=== PATIENT | male | born 1925 | race Caucasian/White ===

== ENCOUNTER 2017-02-13 21:57 | Inpatient (IN) | payer MEDICARE, OTHER ==
[~2017-02-13] VITALS: Ht 177.8 cm; Wt 70.7 kg
[~2017-02-13 21:57] MED LIST: AMLO5TAB2 PO; ATEN25TA PO; ATOR40TA69 PO; GLIP10TA10 PO; GLPZ5T PO; HYDR-4003 PO; ISOS30TA4 PO; LISI-567 PO; METF500T4 PO; NITR0.4T6 SL; OMEP10CA4 PO; OXYC1TAB24 PO; TRIA1TAB3 PO
[2017-02-13 23:25] VITALS: BP 159/69; PULSE 59; RESP 18; O2SAT 97
[2017-02-13] MEDS ORDERED: GLIP10TA10 PO (23:51)
[2017-02-13] MEDS ORDERED: OMEP20TA86 PO (23:54)
[2017-02-13] MEDS ORDERED: METH750T3 PO (23:57)
[2017-02-13] MEDS ORDERED: DOCU-41 PO (23:58)
[2017-02-14] MEDS ORDERED: ATEN25TA PO
[2017-02-14] MEDS ORDERED: ASPI325T32 PO (00:01)
[2017-02-14] MEDS ORDERED: Ondansetron 2 mg/mL 2 mL Inj IVPUSH PRN (00:25)
[2017-02-14] MEDS ORDERED: Alum-Mag Hydrox-Simeth 30 mL Suspension PO PRN (00:25)
[2017-02-14] MEDS ORDERED: Glucose 40% Oral Gel 15 Gm Tube PO PRN (00:25)
[2017-02-14] MEDS ORDERED: Polyethylene Glycol (PEG) 17 Gm Powder PO PRN (00:25)
--- NOTE | 2017-02-14 00:25 | NUR ---
Admit Pt arrived to [facility] at 0015 EMS direct Admit from [facility]. Pt stating came to [place] ER due to low blood sugar. Pt is alert and oriented X3, up ambulating independently in room, steady gait observed, denies chest pain. Placed pt on tele. Pt has medial back incision with stitches from recent spinal surgery 1 week ago, redness noted to site. Med rec completed from [facility] med list, pt stating brought meds to [place] to complete their med list. paged for pt arrival. Call light within reach, frequent rounding.
[2017-02-14 00:51] LABS: BASOPHILS % (AUTO) 0.5 % (0-3); EOSINOPHILS % (AUTO) 10.6 % (0-5); MONOCYTES % (AUTO) 15.3 % (4-12); Mean Corpuscular Hemoglobin 30.1 pg (27.0-35.0); Mean Corpuscular Volume 92.5 fL (81-100); NEUTROPHILS % (AUTO) 56.7 % (40-74); Platelet Count 351 bil/L (150-400)
[2017-02-14 00:54] VITALS: PULSE 60
[2017-02-14 01:31] LABS: APPEARANCE,URINE CLEAR (CLEAR,HAZY); COLOR,URINE YELLOW (YELLOW); OCCULT BLOOD,URINE NEGATIVE (NEGATIVE); PH,URINE 6.5 (5.0-8.0); UROBILINOGEN,URINE NORMAL (NORMAL)
[2017-02-14 01:45] LABS: Magnesium 1.7 mg/dL (1.6-2.6); TROPONIN T 0.01 ug/L (0.0-0.011)
--- NOTE | 2017-02-14 01:57 | PCM.HPMED ---
Subjective Date of Service Feb 14, 2017 Primary Provider: Admitting Physician: Cedric Abdalla MD Primary Care Physician: Misael Meade MD Attending Physician: Cedric Abdalla MD Chief Complaint: lightheaded, weak History of Present Illness: 89yo gentleman with reported hx of dm2, cad, hld transfer from outside facility initially weak, sweaty, lightheaded. found to be hypoglycemic. improved after treatment. found to have elevated troponin. 0.126 per ed doctor denies ever having chest pain or dyspnea recently had lower back surgery 1 weeks ago. feels much better now. Review of Systems: REVIEW OF SYSTEMS: Positive Review of Symptoms mentioned and elaborated on in HPI. Head: Denies H/A, trauma, loss of consciousness. Eyes: Denies visual loss, diplopia. Ears: Denies: deafness, tinnitis, discharge, pain Nose: Denies discharge, obstruction, epistaxis Mouth: Denies sores, gingival bleeding, jaw pain Neck: Denies stiffness, issues swallowing. Respiratory: Denies dyspnea, cough, sputum. Cardiovascular:Denies CP, palpitations, orthopnea, peripheral edema Gastrointestinal: Denies melena, abd pain, n/v/d Genitourinary: Denies dysuria, discharge. Skin: Denies: lesions, rashes, pruritus. Musculoskeletal: Denies joint pain, swelling or increased warmth. Neuro: Denies numbness, tingling, weakness. Psyc: Currently denies feelings of anxiety, depression. Allergies Uncoded Allergies: NKDA (Allergy, Unknown, 11/22/15) PMH see hpi Surgical History cabg, prostate, lower back surgery 1 week ago Family History denies Social History Hx Alcohol Use: No Hx Substance Use: No Exam Vital Signs Vital Sign - Last Date Time Temp Pulse Resp B/P Pulse Ox O2 Delivery O2 Flow Rate FiO2 02/14/17 00:54 60 02/13/17 23:25 36.8 18 159/69 97 Room Air Exam General: No acute distress. Awake, alert. Head: Normocephalic, atraumatic. Eyes: White sclera. Conjunctiva non-injected. Mouth & Throat: No Bleeding. No erythema, lesions, exudates visualized. Neck: No tender adenopathy. Trachea midline. Respiratory: Clear to auscultation bilaterally. Symmetric chest expansion. Regular work of breathing without use of accessory muscles. Cardiovascular: S1, S2. Regular rate and rhythm without murmurs, rubs or gallops. Pulses 2+ equal bilaterally. Abdomen: Normal bowel sounds x4 quadrants. Soft, non-tender, non-distended. Extremities: Intact. no joint effusions. no lower extremity tenderness, swelling , erythema or increased warmth. Skin: Intact, no lesions, no rash. Neurologic: Awake, alert, oriented x3. No new focal deficits. Psychiatric: Appropriate mood and affect. Cooperative. Lab and Diagnostics Result Diagram: 02/14/174202/14/1742 Assessment & Plan -- lightheadedness, weakness -- hypoglycemia improved. cont accuchecks. -- elevated troponin at outside facility cont to trend troponins. echocardiogram. no chest pain or dyspnea give 1 shot of lovenox at outside facility cont as necessary -- dm2 with hypoglycemia insulin regimen as necessary. -- cad medical managment as tolerated -- hld cont statin, check lipid panel -- f/e/n: po diet. -- dvt prophylaxis: lovenox Dipso: Admit to inpt tele with expected length of stay > 2 midnights. Cedric Abdalla MD Feb 14, 2017 01:57
[2017-02-14] MEDS ORDERED: OXYC-474 PO (02:21)
[2017-02-14] MEDS ORDERED: HYDROcodone-APAP 5-325 mg Tablet PO PRN (02:40)
[2017-02-14 02:54] VITALS: BP 159/69; PULSE 64; RESP 18; O2SAT 93
[2017-02-14] MEDS: Insulin LISPRO 300 Unit/3 mL Inj SUBQ SCH ×4 (07:59→22:16)
[2017-02-14] MEDS: Pantoprazole 40 mg ER24 Tablet PO SCH (07:59)
[2017-02-14 08:00] VITALS: PULSE 72
[2017-02-14 09:09] VITALS: BP 121/55; PULSE 61; RESP 18; O2SAT 93
--- NOTE | 2017-02-14 09:09 | NUR ---
Social Work: Initial Assessment Data: Pt is an 89 y/o male admitted for nausea, vomiting, weakness. Pt's PCP is Dr Meade, pt's insurance is Medicare with [employer] [facility]. EMR reviewed. Readmit score not listed. CLAY ARTISAN met with pt at bedside, role explained. Pt states that he lives alone in a single story home in [place] where he uses no DME. Pt drives, has no hx of HH or SNF, no LTC or VA benefits. Pt reports having an AD/DPOA, CLAY ARTISAN requested copy for hospital. No d/c planning needs anticipated at this time. CLAY ARTISAN will continue to follow if needs arise. Assessment: Pt who is independent at baseline. Plan: Pt will d/c home via POV when medically stable. No d/c planning needs anticipated at this time. CLAY ARTISAN will continue to follow if needs arise. LAZARO Rangel Addendum: 02/14/17 at 0911 by TIMOTHY FLYNN Amended: Links added.
--- NOTE | 2017-02-14 15:24 | NUR ---
Uneventful day Patient alert and oriented X4. Patient is independent in room with ADLs and ambulation. Patient denied nausea/vomiting. Patient denied chest pain and SOB. Patient remains on RA. Patient blood sugars have been stable at 110 and 198. Patient states he feels fine. Complaints of mild pain of 2-4/10 to incision site on back. Incision well approximated with sutures intact and no drainage noted.
--- NOTE | 2017-02-14 17:30 | DRSVH ---
[facility] [address] [place] [place] [address] Echocardiogram Report Name: PAOLA MARTINEZ LStudy Date : 02/14/2017 Height: 70 in Hospital Exam Location: [facility] Weight: 156 lb Gender: Male BSA: 1.9 m2 : 1925 Age: 89 yrs BP: 159/69 m mHg Reason For Study: Elevated Troponin Ordering Physician: HOSPITALIST [facility] Performed By: Benjamin Amos Referring Physician: KALEE QUINTANILLA Interpretation Summary There is normal left ventricular wall thickness. The ejection fraction is estimated to be 45-50%. There is severe hypokinesis of the basal inferoseptum, basal inferior wall, and basal interolateral wall. There is mild mitral regurgitation. There is moderate aortic valve sclerosis. Leaflet mobility is mildly reduced. There is no hemodynamically significant valvular aortic stenosis. There is mild tricuspid regurgitation. The right ventricular systolic pressure is estimated at 34 mmHg assuming a right atrial pressure of 3 mm Hg. Procedure: A two-dimensional transthoracic echocardiogram with color flow and Doppler was performed. The study quality was technically good. Comparison is made with the echocardiogram of 02/02/15. The patient was in sinus bradycardia with heart rates between 55-62 bpm during the exam. Left Ventricle: The left ventricle is normal in size. There is normal left ventricular wall thickness. The ejection fraction is estimated to be 45-50%. There is severe hypokinesis of the basal inferoseptum, basal inferior wall, and basal interolateral wall. Assessment of diastolic parameters suggests a pseudonormalization pattern, consistent with elevated filling pressures. Right Ventricle: The right ventricle is mildly dilated. Right ventricular systolic function is borderline reduced. Atria: The left atrium is severely dilated. Right atrial size is normal. The interatrial septum is intact with no evidence for an atrial septal defect. Mitral Valve: The mitral valve leaflets appear mildly thickened, but open well. There is mild mitral regurgitation. Aortic Valve: The aortic valve is trileaflet. The aortic valve opens well. There is moderate aortic valve sclerosis. Leaflet mobility is mildly reduced. There is no hemodynamically significant valvular aortic stenosis. There is trace aortic regurgitation. Tricuspid Valve: The tricuspid valve is normal. There is mild tricuspid regurgitation. The right ventricular systolic pressure is estimated at 34 mmHg assuming a right atrial pressure of 3 mm Hg. Pulmonic Valve: The pulmonic valve leaflets are thin and pliable; valve motion is normal. There is a trace or physiologic amount of pulmonic regurgitation. Great Vessels: The aortic root is normal size. The ascending aorta is mild- moderately enlarged. The pulmonary artery is normal size. The IVC is of normal diameter and collapses greater than 50% with a sniff. This suggests a low right atrial pressure of 3 mm Hg. Pericardium/ Pleura There is no pericardial effusion. There is no pleural effusion. MMode/2D Measurements & Calculations LVIDd: 5.0 cm RA long axis LVOT diam LVIDs: 4.5 cm LA A2 area: 26.5 cm FS: 9.5 % LA A4 area: 33.2 cm RA area AoV Opening EPSS: 0.84 cm LA length (vol): 6.1 cm IVSd: 0.93 cm LA vol: 122.4 ml : 18.0 cm Ao root diam LVPWd: 0.80 cm LA vol index RA vol : 52.5 ml asc Aorta : 65.2 ml/m2 RA Diam: 3.9 cm : 28.0 mm2 LV bains. diameter/BSA LV sys. diameter/BSA RVD1 (basal) RVD2 (mid) (cm/m^2): 2.7 (cm/m^2): 2.4 : 4.7 cm TAPSE: 1.6 cm Doppler Measurements & Calculations Ao V2 max MV E max elio MV E/A: 1.3 TR max elio : 186.0 cm/sec : 103.1 cm/sec Med Peak E' Elio : 278.1 cm/sec Ao max P.8 mmHg MV A max elio TR max PG Ao mean P.1 mmHg : 77.1 cm/sec E/E' med: 23.9 : 30.9 mmHg LVOT Max Elio Lat Peak E' Elio PA V2 max : 105.2 cm/sec : 108.3 cm/sec SHERIE(I,D): 1.9 cm E/E' lat: 14.4 PA mean PG sev ratio: 0.56 E/e' average : 2.5 mmHg MV dec time: 0.12 sec Ao V2 mean LV V1 max PG PA V2 mean : 136.2 cm/sec : 75.3 cm/sec Ao V2 VTI: 44.3 cmLV V1 VTI PA pr(Accel) SHERIE(V,D): 1.9 cm2 : 24.9 cm : 38.5 mmHg SHERIE indexed to BSA (cm^2/m^2): 1.0 Electronically signed by: Robinson Irving on Reading Physician:02/14/2017 05:28 PM
[2017-02-14 17:31] VITALS: BP 131/65; PULSE 65; RESP 20; O2SAT 97
[2017-02-14 20:19] VITALS: BP 145/68; PULSE 60; RESP 16; O2SAT 97
[2017-02-15 01:39] VITALS: BP 161/76; PULSE 65; RESP 17; O2SAT 95
[2017-02-15] MEDS: Pantoprazole 40 mg ER24 Tablet PO SCH (05:39)
[2017-02-15 05:54] VITALS: BP 153/77; PULSE 69; RESP 19; O2SAT 96
--- NOTE | 2017-02-15 05:56 | NUR ---
Restful/Back sutures Pt rested most of the shift quietly. Denies chest pain and shortness of breath. Back sutures are clean/dry/intact. No drainage or s/sx of infection noted at this time. Denies pain. Care ongoing.
[2017-02-15 06:16] VITALS: PULSE 64
[2017-02-15 08:00] VITALS: PULSE 85
[2017-02-15] MEDS: Insulin LISPRO 300 Unit/3 mL Inj SUBQ SCH ×2 (08:15→11:40)
--- NOTE | 2017-02-15 08:51 | PCM.DIMED ---
Discharge Instructions Date of Service Feb 15, 2017 Dates of Hospitalization Feb 13, 2017 at 23:12 Discharge Diagnosis Discharge Diagnosis Hypoglycemia, mildly elevated trop Diet Heart Healthy, Diabetic Call your provider Fever or Chills, Shortness of breath, Bleeding, Chest pain, Vomitting, Excessive diarrhea, Weakness (unilateral), Other Patient Instructions Please hold glipizide when you ar enot eating well. Your metformin is increased and glipizide dose reduced to avoid low blood glucose. Follow-up plan F/U with PCP in one week F/U with Dr. Holliday in 2-3 weeks Arielle Palacios DO Feb 15, 2017 08:51
[2017-02-15] MEDS ORDERED: METF500T PO (08:53)
[2017-02-15] MEDS ORDERED: GLPZ5T PO (08:53)
[2017-02-15 09:00] VITALS: BP 126/66; PULSE 61; RESP 16; O2SAT 95
[2017-02-15] MEDS ORDERED: LISI-567 PO (09:01)
--- NOTE | 2017-02-15 09:15 | NUR ---
Social Work: Discharge Data: Pt is on day 2 of hospitalization. EMR reviewed. D/C orders are in. No d/c planning needs at this time. ULTRASOUND SONOGRAPHER will continue to follow if needs arise. Assessment: Pt who is independent at baseline. Plan: Pt will d/c home today via POV. No d/c planning needs at this time. ULTRASOUND SONOGRAPHER will continue to follow if needs arise. LAZARO Rangel
--- NOTE | 2017-02-15 11:10 | NUR ---
Discharge Patient given discharge orders. Patient given informational packet. Patient IV removed fully intact and asymptomatic. Patient given medication list with written time of next dose due. Patient given follow up instructions. Patient waiting for his transportation home.
--- NOTE | 2017-02-15 12:57 | NUR ---
Case Management: IMM given and explained to pt. Lay LOVE RN
--- NOTE | 2017-02-15 20:35 | PCM.DC.MED ---
Discharge Summary Date of Service Feb 15, 2017 Dates of Hospitalization Date of Hospital Admission Feb 13, 2017 at 23:12 Date of Discharge: Feb 15, 2017 Providers: Admitting Physician: Cedric Abdalla MD Primary Care Physician: Misael Meade MD Attending Physician: Cedric Abdalla MD Diagnosis at Time of Discharge Diagnosis at Time of Discharge Hypoglycemia, mildly elevated trop Consultations None Brief History 89yo gentleman with reported hx of dm2, cad, hld transfer from outside facility initially weak, sweaty, lightheaded. found to be hypoglycemic. improved after treatment. found to have elevated troponin. 0.126 per ed doctor denies ever having chest pain or dyspnea recently had lower back surgery 1 weeks ago. feels much better now. Hospital Course Acute assessment #1 hypoglycemia: Resolved upon arriving to [facility], we recommended to him that based on his A1c and his readings here that he starts metformin 1000 mg by mouth twice a day, cut back on glipizide to glipizide 5 mg by mouth twice a day. Acute assessment #2 elevated troponins: He was watched overnight to rule out ACS. Chronic diagnosis #1 dm2 with hypoglycemia -Low sliding scale insulin, before meals at bedtime checks #2 CAD -- Continue home statin, atenolol, lisinopril On the day of discharge patient is ambulating in the hallways, eating a heart healthy diabetic diet and wanting to go home. He was seen by his forestry fire aid Dr. Gomez who feels that he can be followed up as outpatient. #3 hypertension: Patient's home lisinopril was increased to 10 mg by mouth twice a day to better control his blood pressure Exam Vital Signs (Last) Date Time Temp Pulse Resp B/P Pulse Ox O2 Delivery O2 Flow Rate FiO2 02/15/17 06:16 64 02/15/17 05:54 36.6 19 153/77 96 Room Air Exam Gen.: No acute distress HEENT: Heart: Regular rate and rhythm no S3-S4 murmurs Skin: Vertical incision scar over substernal area, fresh sutures over his spine Lungs: Clear to auscultation no crackles or wheezes Abdomen: Normal bowel sounds soft nontender nondistended Extremities negative for edema Test 02/14/17 00:43 02/14/17 01:12 02/14/17 16:35 White Blood Count 7.8th/mm3 (3.8-10.1) Red Blood Count 3.19mil/mm3 (4.40-5.80) Hemoglobin 9.6g/dL (13.8-17.2) Hematocrit 29.5% (41.0-50.0) Mean Corpuscular Volume 92.5fL (81-100) Mean Corpuscular Hemoglobin 30.1pg (27.0-35.0) Mean Corpuscular Hemoglobin Concent 32.5% (32.0-37.0) Red Cell Distribution Width 13.0% (12.3-15.4) Platelet Count 351bil/L (150-400) Neutrophils (%) (Auto) 56.7% (40-74) Lymphocytes (%) (Auto) 16.5% (14-46) Monocytes (%) (Auto) 15.3% (4-12) Eosinophils (%) (Auto) 10.6% (0-5) Basophils (%) (Auto) 0.5% (0-3) Sodium Level 138mEq/L (134-144) Potassium Level 3.9mEq/L (3.5-5.2) Chloride Level 98mEq/L (97-108) Carbon Dioxide Level 26mmol/L (18-29) Blood Urea Nitrogen 15mg/dL (8-27) Creatinine 0.80mg/dL (0.76-1.27) Estimat Glomerular Filtration Rate 97mL/min (>59) Glucose Level 142mg/dL (60-99) Hemoglobin A1c 6.8% (4.8-5.6) Calcium Level 8.6mg/dL (8.5-10.1) Magnesium Level 1.7mg/dL (1.6-2.6) Total Bilirubin 0.2mg/dL (0.0-1.2) Aspartate Amino Transf (AST/SGOT) 42U/L (0-50) Alanine Aminotransferase (ALT/SGPT) 43U/L (0-44) Alkaline Phosphatase 140U/L (25-160) Total Protein 5.7g/dL (6.4-8.4) Albumin 3.1g/dL (3.4-5.0) Triglycerides Level 83mg/dL (0-149) Cholesterol Level 102mg/dL (100-199) LDL Cholesterol, Calculated 54.400mg/dL (0-99) VLDL Cholesterol 16.600mg/dL HDL Cholesterol 31mg/dL (>39) Cholesterol/HDL Ratio 3.29 (0.0-4.4) Thyroid Stimulating Hormone (TSH) 1.360uIU/mL (0.450-4.500) Urine Color Yellow (YELLOW) Urine Appearance Clear (CLEAR,HAZY) Urine pH 6.5 (5.0-8.0) Urine Specific [place] 1.005 (1.003-1.035) Urine Protein Negativemg/dL (NEG,TRACE) Urine Glucose (UA) Negativemg/dL (NEGATIVE) Urine Ketones Negativemg/dL (NEGATIVE) Urine Occult Blood Negative (NEGATIVE) Urine Nitrite Negative (NEGATIVE) Urine Bilirubin Negative (NEGATIVE) Urine Urobilinogen Normalmg/dL (NORMAL) Urine Leukocyte Esterase Negative (NEGATIVE) Urine RBC 0-2/hpf (0-2) Urine WBC 0-5/hpf (0-5) Urine Epithelial Cells Occasional/hpf (NONE-MOD) Urine Crystals None seen (NONE SEEN) Urine Bacteria Few/hpf (NONE-FEW) Urine Hyaline Casts None/lpf (NONE) Urine Granular Casts None seen (NONE SEEN) Urine Waxy Casts None seen (NONE SEEN) Urine Red Blood Cell Casts None seen (NONE SEEN) Urine White Blood Cell Casts None seen (NONE SEEN) Urine Mucus None seen (None Seen) Urine Trichomonas None seen (NONE SEEN) Urine Yeast None (NONE SEEN) Urinalysis Comment None Urine Culture Reflexed Not indicated Troponin T < 0.010ug/L (0.0-0.011) Discharge Medications Discharge Medications Amlodipine (Amlodipine) 5 Mg Tablet 5 MG PO DAILY (Reported) Aspirin (Aspirin) 325 Mg Tablet 325 MG PO DAILY (Reported) Atenolol (Atenolol) 25 Mg Tablet 25 MG PO DAILY (Reported) Atorvastatin Calcium (Atorvastatin Calcium) 40 Mg Tablet 40 MG PO DAILY ( Reported) Glipizide (Glipizide) 5 Mg Tablet 5 MG PO BIDAC Prescribed by: ARIELLE CM DO Lisinopril (Lisinopril) 20 Mg Tablet 20 MG PO BID Prescribed by: ARIELLE CM DO Metformin (Glucophage) 500 Mg Tablet 1,000 MG PO BIDWM Prescribed by: ARIELLE CM DO Nitroglycerin SL (Nitroglycerin SL) 0.4 Mg Tab.subl 0.4 MG SL PRN (Reported) Omeprazole (Omeprazole) 20 Mg Tablet.dr 20 MG PO DAILY (Reported) As needed Docusate Sodium (Colace) 100 Mg Capsule 100 MG PO BID PRN PRN For Constipation ( Reported) Hydrocodone-Acetaminophen 5-325 mg (Hydrocodone-Acetaminophen 5-325 mg) 1 Each Tablet 1 TABLET PO Q6HRS PRN PRN For Pain (Reported) Methocarbamol (Methocarbamol) 750 Mg Tablet 750 MG PO QID PRN PRN For Spasm ( Reported) Oxycodone (Roxicodone) 5 Mg Tablet 5-15 MG PO Q3H PRN PRN For Pain (Reported) Followup Plan Follow-up plan F/U with PCP in one week F/U with Dr. Holliday in 2-3 weeks Discharge Diet: Heart Healthy, Diabetic Patient Instructions Please hold glipizide when you ar enot eating well. Your metformin is increased and glipizide dose reduced to avoid low blood glucose. Arielle Cm DO Feb 15, 2017 08:56
== END 2017-02-15 12:41 | disposition home or self-care (01) | DRG 639 ==
LOC: OBSVTOIN 23:12 → MPC 23:12
PROVIDERS: ADMIT Family Medicine; ATTEND Family Medicine
DX: E11.649 Type 2 diabetes mellitus with hypoglycemia without coma (principal); I10 Essential (primary) hypertension; Z95.1 Presence of aortocoronary bypass graft; I25.10 Atherosclerotic heart disease of native coronary artery without angina pectoris; R74.8 Abnormal levels of other serum enzymes; Z79.84 Long term (current) use of oral hypoglycemic drugs